=== PATIENT | female | born 1995 | race Caucasian/White ===

== ENCOUNTER 2022-03-19 04:20 | Inpatient (IN) | payer BC, SELFPAY ==
[2022-03-19 04:59] VITALS: BP 126/80; PULSE 89; RESP 18; TEMP 36.6; O2SAT 99; BMI 15.7
[2022-03-19 08:00] VITALS: BP 129/60; PULSE 94; RESP 15; TEMP 36.7; O2SAT 99
[2022-03-19] MEDS: Gabapentin 100 MG CAPSULE PO ×3 (09:19→22:12)
[2022-03-19] MEDS: DULoxetine HCl 30 MG CAPSULE.DR PO (10:07)
[2022-03-19] MEDS: busPIRone HCl 5 MG TABLET 3.75 MG PO ×2 (10:07→22:09)
[2022-03-19] MEDS: clonazePAM 0.5 MG TABLET 0.25 MG PO (10:07)
--- NOTE | 2022-03-19 12:01 | P.CONHOSP_ITS ---
History of Present Illness Data of Consult Service Date: 03/19/22 Primary Care Provider: Keely Valdivia MD HPI 26 year old women admitted to adult [facility] for mental health care. She had some complaints of abdominal cramping from endometriosis. No labs drawn, normal vital signs. Review of Systems Review of Systems: Denies any recent fever chills or decrease in appetite respiratory denies any shortness of breath coverage production cardiovascular Denies chest pain gastrointestinal denies any dysphagia abdominal pain nausea vomiting or diarrhea genitourinary denies any dysuria frequency or hematuria musculoskeletal denies any joint pain or swelling neuropsych denies any weakness or seizures all other systems reviewed are negative PMFSH Social History Currently Displaying Signs/Symptoms of Drug Intoxication Withdrawal: No Advance Directives: No Advance Directives Information Provided: Yes Do you have thoughts of harming others: None Do you have a plan to hurt others: No Plan Meds Allergies Allergy/AdvReac Type Severity Reaction Status Date / Time doxycycline Allergy Unknown Verified 03/19/22 04:54 lactase [From Dairy Aid] Allergy Unknown Verified 03/19/22 06:37 lamotrigine [From Lamictal] Allergy Unknown Verified 03/19/22 04:54 mushroom Allergy Unknown Verified 03/19/22 04:54 Active Medications: Current Medications Acetaminophen (Acetaminophen 325 Mg Tablet) 650 mg PO Q6H PRN PRN Reason: Headache/Pain Mild Scale (1-3) Al Hydroxide/Mg Hydroxide (Magnesium Hydrox/Alum Hydrox 30 Ml Oral.Susp) 30 ml PO Q6H PRN PRN Reason: Heartburn/Nausea Buspirone HCl (Buspirone Hcl 5 Mg Tablet) 3.75 mg PO BID [facility] Last Admin: 03/19/22 10:07 Dose: 3.75 mg Documented by: Clonazepam (Clonazepam 0.5 Mg Tablet) 0.5 mg PO BEDTIME PRN PRN Reason: Anxiety Clonazepam (Clonazepam 0.5 Mg Tablet) 0.25 mg PO DAILY [facility] Last Admin: 03/19/22 10:07 Dose: 0.25 mg Documented by: Duloxetine HCl (Duloxetine Hcl 30 Mg Capsule.) 30 mg PO DAILY [facility] Last Admin: 03/19/22 10:07 Dose: 30 mg Documented by: Gabapentin (Gabapentin 100 Mg Capsule) 100 mg PO DAILY [facility] Last Admin: 03/19/22 09:19 Dose: 100 mg Documented by: Hydroxyzine HCl (Hydroxyzine Hcl 25 Mg Tablet) 25 mg PO Q6H PRN PRN Reason: Anxiety Magnesium Hydroxide (Milk Of Magnesia 30 Ml Oral.Susp) 30 ml PO DAILY PRN PRN Reason: Constipation Nicotine Polacrilex (Nicotine Polacrilex 2 Mg Gum) 2 mg BUCCAL Q2H PRN PRN Reason: Nicotine Cravings Trazodone HCl (Trazodone Hcl 50 Mg Tablet) 50 mg PO BEDTIME PRN PRN Reason: Insomnia Home Medications Medication Instructions Recorded Confirmed Last Taken Type buspirone 5 mg tablet 7.5 mg PO BID 03/19/22 03/19/22 Unknown History clonazepam 0.5 mg tablet 0.5 mg PO DAILY PRN 03/19/22 03/19/22 Unknown History duloxetine 30 mg capsule,delayed 30 mg PO DAILY 03/19/22 03/19/22 Unknown History release sprinkle gabapentin 100 mg capsule 100 mg PO TID 03/19/22 03/19/22 Unknown History methylphenidate HCl 5 mg tablet 5 mg PO QAM 03/19/22 03/19/22 Unknown History Physical Exam Vital Signs and Narrative: Vital Signs: Last Vital Signs Temp 98.1 F 03/19/22 08:00 Pulse 94 03/19/22 08:00 Resp 15 03/19/22 08:00 BP 129/60 03/19/22 08:00 Pulse Ox 99 03/19/22 08:00 BMI result Body Mass Index 15.7 Assessment and Plan (1) Depression: Status: Acute Plan 26 year old women admitted to adult psych for treatment of mental health Mental health management as per admitting team Endometriosis cramping and bleeding requesting IBU for pain Consult completed
[2022-03-19] MEDS: Ibuprofen 600 MG TABLET PO ×2 (13:17→22:17)
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
[2022-03-19 22:05] VITALS: BP 122/69; PULSE 72; RESP 18; TEMP 36.7; O2SAT 98
[2022-03-19] MEDS: clonazePAM 0.5 MG TABLET PO (22:15)
[2022-03-20] MEDS: traZODone HCL 50 MG TABLET PO (00:18)
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
[2022-03-20 07:45] LABS: Estimated Average Glucose 100 mg/dL; Hemoglobin A1c % 5.1 %
[2022-03-20 08:07] LABS: Thyroid Stimulating Hormone 1.08 uIU/mL (0.32-4.0)
[2022-03-20 08:16] LABS: Alanine Aminotransferase 11 U/L (0-31); Albumin Level 4.3 g/dL (3.5-5.0); Alkaline Phosphatase 51 U/L (39-117); Anion Gap 11 (12-20); Aspartate Amino Transferase 14 U/L (5-31); Bilirubin Total 0.8 mg/dL (0.0-1.0); Blood Urea Nitrogen 9 mg/dL (9-16); Calcium 9.6 mg/dL (8.4-10.2); Carbon Dioxide 25 mmol/L (22-29); Chloride 108 mmol/L (96-108); Cholesterol 161 mg/dL; Creatinine Clr Calc Pharmacy 72.7; Estimated Glomerular Filt Rate > 60; Glucose Fasting 95 mg/dL (60-99); HDL Cholesterol 63 mg/dL; LDL Cholesterol Calculated 91 mg/dl; Potassium 4.3 mmol/L (3.3-5.1); Sodium 140 mmol/L (135-145); Total Protein 6.4 g/dL (6.5-8.0); Triglycerides 37 mg/dL
[2022-03-20 09:15] VITALS: BP 101/55; PULSE 73; RESP 16; TEMP 36.9; O2SAT 98
[2022-03-20] MEDS: clonazePAM 0.5 MG TABLET 0.25 MG PO (09:51)
[2022-03-20] MEDS: DULoxetine HCl 30 MG CAPSULE.DR PO (09:51)
[2022-03-20] MEDS: busPIRone HCl 5 MG TABLET 3.75 MG PO (09:51)
[2022-03-20] MEDS: Ibuprofen 600 MG TABLET PO (09:52)
[2022-03-20] MEDS: Gabapentin 100 MG CAPSULE PO (09:52)
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
--- NOTE | 2022-03-20 11:10 | PC.NURSE ---
Aisha is alert, fully oriented, pleasant and cooperative with discharge process. She is being discharged by Dr De, her outpatient provider and our current covering MD. She denies ideation, plan or intent to harm self or others. She is able to identify crisis team and her outpatient therapist as supports. She is future oriented to attending partial following discharge which she says she will set up herself. She reports improved sleep, improved appetite and her ability to focus is good. She denies perceptual disturbance. She denies physical complaint.
[2022-03-21 10:48] LABS: Folate 14.6 ng/mL (> or = 4.0); Vitamin B12 826 pg/mL (200-900)
== END 2022-03-20 12:22 | disposition home or self-care (01) | DRG 754 ==
PROVIDERS: Social Worker; Admitting Provider Psychiatry & Neurology Psychiatry; PCP Internal Medicine; Visit Provider Psychiatry & Neurology Psychiatry
DX: F32.9 Major depressive disorder, single episode, unspecified (principal); N80.9 Endometriosis, unspecified; Z91.52 Personal history of nonsuicidal self-harm; Z88.1 Allergy status to other antibiotic agents; Z87.891 Personal history of nicotine dependence; Z88.8 Allergy status to other drugs, medicaments and biological substances; Z79.899 Other long term (current) drug therapy
CPT/HCPCS: 36415; 80053; 80061; 82607; 82746; 83036; 84443